=== PATIENT | female | born 1985 | race Caucasian/White ===

== ENCOUNTER → 2018-04-18 10:48 | Outpatient (POV) | payer OTHER, SELFPAY | PROVIDERS: Visit Provider Otolaryngology | DX: Z00.00 Encounter for general adult medical examination without abnormal findings (principal) ==

== ENCOUNTER 2019-03-28 12:58 | Observation (INO) ==
--- NOTE | 2019-03-28 13:07 | Emergency Department Note ---
ED Disposition Clinical Impression: Vaginal bleeding, Hemoperitoneum Disposition: Still a Patient Condition on Discharge: Critical Referrals: Leonid Edward MD [Primary Care Provider] - - Critical Care Critical Care Time: Yes Attestation: On , the high probability of a clinically significant, sudden or life threatening deterioration of the following system(s) required my full and direct attention, intervention and personal management. The time I documented below is in addition to time spent performing reported procedures but includes the following listed in this critical care notation. Total Critical Care Time: 60 Vital system(s) involved:: Circulatory Failure My critical care processes included: Assessment & monitoring of V/S, Initial and Re-exams, Data Review/Interpretation, Coordinating Care, Medication Orders and management, Documentation Medical Decision Making - Quentin Inquiry Pt receiving controlled substance: No Vital Signs: 03/28/19 13:05 03/28/19 14:59 Temperature 99.4 F Temperature Source Oral Pulse Rate [Right Radial] 86 77 Respiratory Rate 18 20 Blood Pressure [Right Arm] 127/69 105/43 L Blood Pressure Mean [Right Arm] 88 63 Blood Pressure Source [Right Arm] Automatic Cuff Automatic Cuff Blood Pressure Position [Right Arm] Sitting Supine 02 Sat by Pulse Oximetry 100 100 Oxygen Delivery Method Room Air Room Air - Lab Data Lab Results 03/28/19 13:15: WBC 28.8 H*, RBC 3.88 L, Hgb 11.1 L, Hct 37.0, MCV 95.2, MCH 28.5, MCHC 29.9 L, RDW 13.6, Plt Count 600 H, MPV 6.9 L, Neut % (Auto) 91.4 H, Lymph % (Auto) 4.1 L, [place] % (Auto) 4.0, Eos % (Auto) 0.3, Baso % (Auto) 0.2, Neut # (Auto) 26.3 H, Lymph # (Auto) 1.2, [place] # (Auto) 1.2 H, Eos # (Auto) 0.1, Baso # (Auto) 0.1, Total Counted 100, Neutrophils % (Manual) 90 H, Band Neutrophils % 2.0, Lymphocytes % (Manual) 5 L, Monocytes % (Manual) 2, Eosinophils % (Manual) 1, Platelet Estimate Slight increase, RBC Morphology Normal 03/28/19 13:15: Sodium 136, Potassium 3.4 L, Chloride 100, Carbon Dioxide 23, Anion Gap 16.4 H, BUN 17, Creatinine 0.81, Estimated Creat Clear 106, Estimated GFR 81, Est GFR ( Amer) 99, Glucose 118 H, Calcium 8.7, Total Bilirubin 0.6, AST 20, ALT 20, Alkaline Phosphatase 110, Total Protein 8.0, Albumin 3.9, Globulin 4.1 H, Albumin/Globulin Ratio 1.0 L 03/28/19 13:15: Serum HCG, Qual Positive 03/28/19 13:15: HCG, Quant 8 H 03/28/19 13:45: Crossmatch (AHG) See Detail 03/28/19 13:45: Lactate 2.4 H 03/28/19 13:59: Urine Color Red, Urine Appearance Turbid, Urine pH 8.0, Ur Specific [place] 1.015, Urine Protein 3+, Urine Glucose (UA) 1+, Urine Ketones 1+, Urine Blood 3+, Urine Nitrate Positive, Urine Bilirubin Negative, Urine Urobilinogen >=8.0, Ur Leukocyte Esterase 3+ A, Urine RBC Tntc, Urine WBC 20-50, Ur Squamous Epith Cells None, Urine Bacteria 2+ Result diagrams: 03/28/19 13:15 03/28/19 13:15 Orders (Tests/Meds): ED MEDICATIONS Generic Name Dose Route Start Last Admin Trade Name Freq PRN Reason Stop Dose Admin Sodium Chloride 250 mls @ 25 mls/hr 03/28/19 15:30 Sod Chlor 0.9% 250ml Bag IV 03/29/19 15:29 .Q10H STEFAN Discontinued Medications Generic Name Dose Route Start Last Admin Trade Name Freq PRN Reason Stop Dose Admin Sodium Chloride 1,000 mls @ 999 mls/hr 03/28/19 14:15 03/28/19 14:07 Sod Chlor 0.9% 1000ml Bag IV 03/28/19 15:15 999 mls/hr .Q1H1M STEFAN Administration Morphine Sulfate 1 mg 03/28/19 13:50 03/28/19 13:50 Morphine 2mg/Ml Syringe IV 03/28/19 13:51 1 mg ONCE ONE Administration Ondansetron HCl 4 mg 03/28/19 13:26 03/28/19 13:41 Zofran 4mg/2ml Vial IV 03/28/19 13:27 4 mg ONCE ONE Administration Sodium Chloride 1,000 ml 03/28/19 13:26 03/28/19 13:41 Sod Chlor 0.9% 1000ml Bag IV 03/28/19 13:27 1,000 ml BOLUS ONE Administration ORDERS Category Date Time Status PRBC [Red Blood Cells] Stat BBK 03/28/19 13:45 Received Type and Screen Stat BBK 03/28/19 13:45 Received US transvaginal Stat Exams 03/28/19 13:27 Ordered Hemoglobin and Hematocrit Routine Lab 03/28/19 15:16 Received Lactate Dehydrogenase Stat Lab 03/28/19 13:15 Received PT/PTT Stat Lab 03/28/19 15:21 Ordered Uric Acid Stat Lab 03/28/19 13:15 Received Blood Culture Stat Micro 03/28/19 13:45 Received Urine Culture Stat Micro 03/28/19 13:59 Received - US Data US Images: Pelvis ED US Reviewed: Yes: I discussed the US results w/the radiologist Findings Narrative: Intrauterine blood, large amount and also extrauterine blood present. - Physician Consults Physician Consulted: Te Time: 15:15 Reason -: Obstetrical Eval/Care Comment/Response: I advised of condition and findings and that I feel patient needs to go to OR. She will call radiologist and call back. Additional Consult: Kenny Cage Time: 15:23 Reason -: Obstetrical Eval/Care Comment/Response: advised of condition Medical Decision Narrative: 3:40 PM: Dr. Tiwari present. General Adult HPI - General Stated complaint: weak low b/p Time Seen by Provider: 03/28/19 13:16 - History of Present Illness HPI narrative: Complains of heavy vaginal bleeding, pelvic pain, dizziness, nausea, sweatiness, and low blood pressure. Symptoms started around 9 AM. She is gone through numerous pads, initially passing large amount of clots and then "straight blood". She had a section at [facility] on 03/12/2019. OB is Dr. Cage of [facility]. She says her blood pressure was high and she had elevated liver enzymes and therefore had a section at 38 weeks. She continued with high blood pressure after delivery and has been on Procardia. She only had light bleeding until her symptoms started this morning. She skipped her Procardia this morning because of low blood pressure. - Related Data Home Medications Medication Instructions Recorded Confirmed cetirizine 10 mg capsule 10 mg PO ONCE 10/16/17 fluticasone propionate 50 1 spray INTRANASAL ONCE 10/16/17 mcg/actuation nasal spray,suspension multivitamin capsule 1 cap PO QAM 10/16/17 Allergies Allergy/AdvReac Type Severity Reaction Status Date / Time No Known Allergies Allergy Verified 10/16/17 13:20 [facility] History - Hepatitis A Screen Attestation statement:: This patient has been screened for Hepatitis A risk factors. I have reviewed the patient's past medical history: Yes Other Surgeries: Yes: Amputation: No Fractures: No - Social History Smoking Status: Never smoker Alcohol Intake: current Alcohol Intake Frequency:: other Family Hx:: No significant family history ROS Obtained: Yes All systems reviewed & no additional complaints - Constitutional Constitutional: Reports excessive sweating, Reports weakness - Gastrointestinal Gastrointestingal: Reports: abdominal pain, nausea. Denies: vomiting - Genitourinary Female Genitourinary: Reports abnormal vaginal bleeding Physical Exam - General General appearance: alert Comment: Pale, anxious - Head Head exam: atraumatic, normocephalic - Eye Eye exam: Present: other (conjuctiva pale) - ENT ENT exam: Present: mucous membranes moist - Neck Neck exam: Present: normal inspection, trachea midline - Chest Chest inspection: Present: normal inspection, symmetric chest wall rise - Respiratory Respiratory exam: Present: normal lung sounds bilaterally. Absent: respiratory distress - Cardiovascular Cardiovascular exam: Present: regular rate, normal rhythm, normal heart sounds - Abdominal Exam Abdominal exam: Present: soft, tenderness, guarding, normal bowel sounds Abdominal tenderness: Present: RLQ, LLQ, suprapubic Comment: scar healing well - Extremities Exam Extremities exam: Present: normal inspection - Neurological Exam Neurological exam: Present: alert, oriented X3 - Psychiatric Psychiatric exam: Present: anxious - Skin Skin exam: Present: pallor
[2019-03-28 13:25] LABS: Basophils # 0.1 K/mm3 (0-0.2); Basophils % 0.2 % (0.1-2.0); Eosinophils # 0.1 K/mm3 (0.0-0.4); Eosinophils % 0.3 % (0.1-12.0); Hemoglobin 11.1 g/dL (12.2-16.2); Lymphocytes # 1.2 K/mm3 (0.7-4.5); Lymphocytes % 4.1 % (10-50); Mean Corpuscular HGB Conc 29.9 g/dL (31.8-35.4); Mean Corpuscular Volume 95.2 fl (81-99); Mean Platelet Volume 6.9 fl (7.4-10.4); Monocytes # 1.2 K/mm3 (0.1-1.0); Neutrophils # 26.3 K/mm3 (1.8-7.8); Neutrophils % 91.4 % (37.0-80.0); Platelet Count 600 K/mm3 (142-424); Red Blood Count 3.88 M/mm3 (4.20-5.40); Red Cell Distribution Width 13.6 % (11.5-17.5); White Blood Count 28.8 K/mm3 (4.8-10.8)
[2019-03-28 13:37] LABS: Albumin Level 3.9 gm/dL (3.4-5.0); Anion Gap 16.4 mEq/L (5-15); Bilirubin,Total 0.6 mg/dL (0.2-1.0); Calcium 8.7 mg/dL (8.5-10.1); Globulin 4.1 gm/dl (1.3-3.2)
[2019-03-28 13:56] LABS: Eosinophils % 1 % (0-3); Lymphocytes % 5 % (10-50); Monocytes % 2 % (2-9); Neutrophils % 90 % (42-76); RBC Morphology Normal; Total Cells Counted 100
[2019-03-28 14:32] LABS: Microscopic, Urine URINE MICROSCOPIC (MICROSCOPIC)
[2019-03-28 14:41] LABS: Bilirubin,Urine Negative (Negative); Blood, Urine 3+ (Negative); Glucose,Urine (UA) 1+ (Negative); Ketones,Urine 1+ (Negative); Leukocyte Esterase,Urine 3+ (Negative); Protein,Urine 3+ (Negative); Specific Gravity, Urine 1.015 (1.005-1.030); Urobilinogen,Urine >=8.0 EU/dl (0.2)
[2019-03-28 14:43] LABS: Appearance,Urine TURBID (Clear); Color,Urine RED (Yellow)
[2019-03-28 15:08] LABS: Bacteria,Urine 2+ /lpf; RBC,Urine TNTC #/hpf (0-3); WBC,Urine 20-50 #/hpf (0-3)
[2019-03-28 15:48] LABS: Uric Acid 6.2 mg/dL (2.6-7.2)
[2019-03-28 15:54] LABS: Hematocrit 22.5 % (37.0-47.0)
[2019-03-28 16:19] LABS: Activated Partial Thrombo Time 28.2 seconds (23.6-34.0); INR 1.06 (0.9-1.1)
--- NOTE | 2019-03-28 17:15 | Progress Note ---
[facility] Anesthesia Checklist - Structural Data Admitted From: Home Planned Operative Procedure/s: d/c Consent for Planned Operative Procedure(s) Verified: Yes - Airway Assessment C-Spine Mobility Assessed: Yes TMJ Mobility Assessed: Yes Dentition: Good Dentition - Neurological Assessment Level of Consciousness: Awake, Alert, Appropriate - Anesthesia Plan Anesthesia Risk discussed: Yes Anesthesia Plan: Verified ASA Class: II Anesthesia Type: General - Preoperative Comments Pre-Operative Comments: emergency [facility] History I have reviewed the patient's past medical history: Yes *Have you ever received a pneumonia vaccine?: Yes *Have you received a flu vaccine this season?: Yes Anesthesia experience/problems:: none Other Surgeries: Yes: Amputation: No Fractures: No - *Social History Smoking Status: Never smoker Alcohol Intake: never Alcohol Intake Frequency:: other Substance Use Type: denies use *Occupational Status:: employed *Travel in the last 8 weeks: None Family Hx:: No significant family history
--- NOTE | 2019-03-28 17:16 | Progress Note ---
[facility] Anesthesia Record Part II Discharge Time: 17:40 Destination: floor PACU nurse assessment reviewed?: Yes Patient Condition:: Good Anesthesia Complications:: None Swallowing reflex intact?: Yes Cyanosis?: No
--- NOTE | 2019-03-28 17:16 | Progress Note ---
[facility] Anesthesia Record Part I Intake, IV Amount: 1,500 Estimated blood loss (mL): 2,000 Urine output (mL): 0 Blood Pressure: 144/81 SaO2: 100 Pulse Rate: 110 Respiratory Rate: 12 Temperature: 97.8 F Patient is:: Awake, Stable Stable to PACU at:: 17:10
--- NOTE | 2019-03-28 18:10 | Operative Note ---
Date of procedure: 03/28/19 Pre-op Diagnosis:: 1. hemorrhage 2. Acute blood loss anemia 3. Acute abdominal pain Post-op Diagnosis:: 1. hemorrhage 2. Acute blood loss anemia 3. Acute abdominal pain 4. Retained placenta 5. Endometritis Procedure performed:: Suction Dilation and Curettage Surgeon:: Karlee Tiwari MD PROTEIN SPECIALIST:: Baljeet Kinsey Anesthesia: GETA Estimated blood loss (mL): 1,500 Operative findings:: Retained POC, c/w placenta Operative note:: The patient was taken to the OR and general anesthesia administered without difficulty. She was prepped & draped in lithotomy position; large clots were being expelled vaginally during the prep. A weighted speculum was placed in the vagina and a Gil retractor used anteriorly. The anterior lip of the cervix was grasped with a tenaculum and a curved suction curette, size 11 was introduced into the uterine cavity. The fundal height was noted to be 18cm prior to the beginning of the procedure, and a large amount of clot was immediately evacuated from the uterus with the suction. As the clot was being removed, a large amount of tissue with an appearance of placenta was noted to be clogging the suction tip. The suction was removed and the tissue was grasped with a ring forcep and pulled from the uterus. The suction curettage was resumed until the bleeding slowed down. At this point, sharp curettage was performed to verify that the endometrial texture was appropriate. Intra-operative ultrasound was also performed concurrently to assist with the procedure, and confirmed that there was on residual retained POC. The ultrasound also confirmed a lack of hemoperitoneum, which had been reported on the initial ultrasound. At the conclusion of the procedure, all instruments were removed from her uterus and vagina. She was taken out of lithotomy position, awakened from anesthesia and taken to the PACU in stable condition. All sponge, needle & instrument counts correct. Total EBL 1500cc Condition: stable Disposition: PACU Specimens:: Retained POC Complications:: None
[2019-03-28 19:28] LABS: Hemoglobin 9.6 g/dL (12.2-16.2)
[2019-03-29 00:15] LABS: Hematocrit 30.6 % (37.0-47.0); Hemoglobin 9.4 g/dL (12.2-16.2)
[2019-03-29 07:10] LABS: Hematocrit 25.7 % (37.0-47.0)
--- NOTE | 2019-03-29 08:08 | Pharmacy Consult Notes ---
[facility] Pharmacy VTE Monitoring - Patient Demographics Admission date: 03/28/19 Report Date: 03/29/19 Time: 08:07 Allergies/Adverse Reactions: Patient Allergies No Known Allergies Allergy (Verified 10/16/17 13:20) Height: 1.55 m Weight: 68.039 kg Patient Problems: Current Active Problems endometritis (Acute) Retained placenta (Acute) Acute blood loss anemia (Acute) hemorrhage, delayed (> 24 hrs) (Acute) Vaginal bleeding (Acute) - VTE Risk Labs: VTE Related Lab Results Hgb 8.0 g/dL (12.2-16.2) L 03/29/19 06:14 Hct 25.7 % (37.0-47.0) L 03/29/19 06:14 Plt Count 600 K/mm3 (142-424) H 03/28/19 13:15 PT 11.0 seconds (9.4-11.8) 03/28/19 15:30 INR 1.06 (0.9-1.1) 03/28/19 15:30 APTT 28.2 seconds (23.6-34.0) 03/28/19 15:30 BUN 17 mg/dL (7-18) 03/28/19 13:15 Creatinine 0.81 mg/dL (0.55-1.02) 03/28/19 13:15 Estimated Creat Clear 106 mL/min (50-200) 03/28/19 13:15 Clinical Trial Participant: No - Prophylaxis VTE Prophylaxis Ordered?: Yes Types of VTE Prophylaxis: TEDS Knee High
--- NOTE | 2019-03-29 10:29 | Discharge Summary ---
General - General Admission date:: 03/28/19 Discharge date: 03/29/19 HPI HPI: 33 yo presented to ED approximately 2 wks post repeat LTCS with excessive vaginal bleeding/PPH. She was taken to the OR for D&C, with findings of retained placenta, and transfused 2 units PRBCs. Post-transfusion Hgb 8.0, and she is clinically stable with this anemia. Reports fatigue, but denies chest pain, SOB or dizziness. Vital signs have been stable and vaginal bleeding small in amount. She has been treated with methergine q 6 hours and ampicillin/clindamycin for possible endometritis. She is discharged home on POD #1 and will follow up with primary boilermaker welder for previously scheduled post-op visit after c section. She does not need separate f/u for the D&C but was advised that she is also welcome to f/u with our office for any needs. She has been advised to hold the procardia at this time unless directed to resume it by her primary boilermaker welder, and given precautions to check blood pressure at home should she become symptomatic. Hospital Course Hospital Course: per HPI Rhogam Administration: Not Indicated Objective Vital signs: Temp Pulse Resp BP Pulse Ox 99.0 F 65 18 111/55 L 100 03/29/19 07:47 03/29/19 07:47 03/29/19 07:47 03/29/19 07:47 03/29/19 07:47 Narrative: CONSTITUTIONAL: no acute distress HEENT: mucous membranes moist PULMONARY: breathing unlabored without audible wheezes CV: no tachycardia or visible JVD; normal LE peripheral pulses ABD: soft, NT/ND, no guarding : fundus firm below umbilicus (14cm) SKIN: no visible rash or lesions EXT: no edema LEs NEURO: alert/oriented, no altered mental status PSYCH: appropriate mood and demeanor without anxiety/depression Results Labs on day of discharge: Labs from last 24 hours 03/29/19 03/29/19 03/28/19 06:14 00:06 18:59 WBC RBC Hgb 8.0 L 9.4 L 9.6 L D Hct 25.7 L 30.6 L 32.0 L MCV MCH MCHC RDW Plt Count MPV Neut % (Auto) Lymph % (Auto) [place] % (Auto) Eos % (Auto) Baso % (Auto) Neut # (Auto) Lymph # (Auto) [place] # (Auto) Eos # (Auto) Baso # (Auto) Total Counted Neutrophils % (Manual) Band Neutrophils % Lymphocytes % (Manual) Monocytes % (Manual) Eosinophils % (Manual) Platelet Estimate RBC Morphology PT INR APTT Sodium Potassium Chloride Carbon Dioxide Anion Gap BUN Creatinine Estimated Creat Clear Estimated GFR Est GFR ( Amer) Glucose Lactate Uric Acid Calcium Total Bilirubin AST ALT Alkaline Phosphatase Lactate Dehydrogenase Total Protein Albumin Globulin Albumin/Globulin Ratio Serum HCG, Qual HCG, Quant Urine Color Urine Appearance Urine pH Ur Specific [place] Urine Protein Urine Glucose (UA) Urine Ketones Urine Blood Urine Nitrate Urine Bilirubin Urine Urobilinogen Ur Leukocyte Esterase Urine RBC Urine WBC Ur Squamous Epith Cells Urine Bacteria Blood Type Blood Type Confirm Antibody Screen Crossmatch ([facility]) 03/28/19 03/28/19 03/28/19 18:59 16:10 15:30 WBC RBC Hgb Hct MCV MCH MCHC RDW Plt Count MPV Neut % (Auto) Lymph % (Auto) [place] % (Auto) Eos % (Auto) Baso % (Auto) Neut # (Auto) Lymph # (Auto) [place] # (Auto) Eos # (Auto) Baso # (Auto) Total Counted Neutrophils % (Manual) Band Neutrophils % Lymphocytes % (Manual) Monocytes % (Manual) Eosinophils % (Manual) Platelet Estimate RBC Morphology PT 11.0 INR 1.06 APTT 28.2 Sodium Potassium Chloride Carbon Dioxide Anion Gap BUN Creatinine Estimated Creat Clear Estimated GFR Est GFR ( Amer) Glucose Lactate 1.2 Uric Acid Calcium Total Bilirubin AST ALT Alkaline Phosphatase Lactate Dehydrogenase Total Protein Albumin Globulin Albumin/Globulin Ratio Serum HCG, Qual HCG, Quant Urine Color Urine Appearance Urine pH Ur Specific [place] Urine Protein Urine Glucose (UA) Urine Ketones Urine Blood Urine Nitrate Urine Bilirubin Urine Urobilinogen Ur Leukocyte Esterase Urine RBC Urine WBC Ur Squamous Epith Cells Urine Bacteria Blood Type Blood Type Confirm O Positive Antibody Screen Crossmatch ([facility]) 03/28/19 03/28/19 03/28/19 15:16 13:59 13:45 WBC RBC Hgb 7.0 L* D Hct 22.5 L* MCV MCH MCHC RDW Plt Count MPV Neut % (Auto) Lymph % (Auto) [place] % (Auto) Eos % (Auto) Baso % (Auto) Neut # (Auto) Lymph # (Auto) [place] # (Auto) Eos # (Auto) Baso # (Auto) Total Counted Neutrophils % (Manual) Band Neutrophils % Lymphocytes % (Manual) Monocytes % (Manual) Eosinophils % (Manual) Platelet Estimate RBC Morphology PT INR APTT Sodium Potassium Chloride Carbon Dioxide Anion Gap BUN Creatinine Estimated Creat Clear Estimated GFR Est GFR ( Amer) Glucose Lactate 2.4 H Uric Acid Calcium Total Bilirubin AST ALT Alkaline Phosphatase Lactate Dehydrogenase Total Protein Albumin Globulin Albumin/Globulin Ratio Serum HCG, Qual HCG, Quant Urine Color Red Urine Appearance Turbid Urine pH 8.0 Ur Specific [place] 1.015 Urine Protein 3+ Urine Glucose (UA) 1+ Urine Ketones 1+ Urine Blood 3+ Urine Nitrate Positive Urine Bilirubin Negative Urine Urobilinogen >=8.0 Ur Leukocyte Esterase 3+ A Urine RBC Tntc Urine WBC 20-50 Ur Squamous Epith Cells None Urine Bacteria 2+ Blood Type Blood Type Confirm Antibody Screen Crossmatch ([facility]) 03/28/19 03/28/19 03/28/19 13:45 13:15 13:15 WBC RBC Hgb Hct MCV MCH MCHC RDW Plt Count MPV Neut % (Auto) Lymph % (Auto) [place] % (Auto) Eos % (Auto) Baso % (Auto) Neut # (Auto) Lymph # (Auto) [place] # (Auto) Eos # (Auto) Baso # (Auto) Total Counted Neutrophils % (Manual) Band Neutrophils % Lymphocytes % (Manual) Monocytes % (Manual) Eosinophils % (Manual) Platelet Estimate RBC Morphology PT INR APTT Sodium Potassium Chloride Carbon Dioxide Anion Gap BUN Creatinine Estimated Creat Clear Estimated GFR Est GFR ( Amer) Glucose Lactate Uric Acid 6.2 Calcium Total Bilirubin AST ALT Alkaline Phosphatase Lactate Dehydrogenase 243 H Total Protein Albumin Globulin Albumin/Globulin Ratio Serum HCG, Qual HCG, Quant 8 H Urine Color Urine Appearance Urine pH Ur Specific [place] Urine Protein Urine Glucose (UA) Urine Ketones Urine Blood Urine Nitrate Urine Bilirubin Urine Urobilinogen Ur Leukocyte Esterase Urine RBC Urine WBC Ur Squamous Epith Cells Urine Bacteria Blood Type O Positive Blood Type Confirm Antibody Screen Negative Crossmatch ([facility]) See Detail 03/28/19 03/28/19 03/28/19 13:15 13:15 13:15 WBC 28.8 H* RBC 3.88 L Hgb 11.1 L Hct 37.0 MCV 95.2 MCH 28.5 MCHC 29.9 L RDW 13.6 Plt Count 600 H MPV 6.9 L Neut % (Auto) 91.4 H Lymph % (Auto) 4.1 L [place] % (Auto) 4.0 Eos % (Auto) 0.3 Baso % (Auto) 0.2 Neut # (Auto) 26.3 H Lymph # (Auto) 1.2 [place] # (Auto) 1.2 H Eos # (Auto) 0.1 Baso # (Auto) 0.1 Total Counted 100 Neutrophils % (Manual) 90 H Band Neutrophils % 2.0 Lymphocytes % (Manual) 5 L Monocytes % (Manual) 2 Eosinophils % (Manual) 1 Platelet Estimate Slight increase RBC Morphology Normal PT INR APTT Sodium 136 Potassium 3.4 L Chloride 100 Carbon Dioxide 23 Anion Gap 16.4 H BUN 17 Creatinine 0.81 Estimated Creat Clear 106 Estimated GFR 81 Est GFR ( Amer) 99 Glucose 118 H Lactate Uric Acid Calcium 8.7 Total Bilirubin 0.6 AST 20 ALT 20 Alkaline Phosphatase 110 Lactate Dehydrogenase Total Protein 8.0 Albumin 3.9 Globulin 4.1 H Albumin/Globulin Ratio 1.0 L Serum HCG, Qual Positive HCG, Quant Urine Color Urine Appearance Urine pH Ur Specific [place] Urine Protein Urine Glucose (UA) Urine Ketones Urine Blood Urine Nitrate Urine Bilirubin Urine Urobilinogen Ur Leukocyte Esterase Urine RBC Urine WBC Ur Squamous Epith Cells Urine Bacteria Blood Type Blood Type Confirm Antibody Screen Crossmatch ([facility]) DS: Diagnosis - Discharge Diagnosis (1) hemorrhage, delayed (> 24 hrs) Status: Acute (2) Retained placenta Status: Acute (3) Acute blood loss anemia Status: Acute (4) endometritis Status: Acute Discharge Plan - Patient Discharge Instructions ACTIVITY: Continue current activity DIET: regular diet Additional Instructions: no heavy lifting- nothing in the vagina until 6 weeks pp or cleared by md take over the counter medications for pain monitor bleeding Patient Instructions: Dilation and Curettage, Anemia, Hemorrhage, Diet - Follow up Plan Disposition: Home, Self-Shelter Medications: Home Medications Medication Instructions Recorded Confirmed Type Clindamycin HCl [Clindamycin HCl 300 mg PO Q8 #30 cap 03/29/19 Rx 300mg Cap] Ferrous Sulfate [Ferrous Sulfate 325 mg PO BID #60 tab 03/29/19 Rx 325mg Tablet] Ibuprofen [Ibuprofen 600mg 600 mg PO NEEDED PRN 03/29/19 03/29/19 History Tablet] NIFEdipine [Nifedipine ER] 30 mg PO DAILY 03/29/19 03/29/19 History Prescriptions/Medication Reconciliation: New Clindamycin HCl [Clindamycin HCl 300mg Cap] 300 mg PO Q8 #30 cap Ferrous Sulfate [Ferrous Sulfate 325mg Tablet] 325 mg PO BID #60 tab Vits96/Iron Fum/Folic [ MVI w/Iron Tablet] 1 each PO 1700 tablet Continued Ibuprofen [Ibuprofen 600mg Tablet] 600 mg PO NEEDED PRN PRN Reason: Mild Pain Discontinued NIFEdipine [Nifedipine ER] 30 mg PO DAILY - Problem Reconciliation Problems Reviewed?: Yes
== END 2019-03-29 13:30 | disposition home or self-care (01) ==
LOC: ER 12:58 → OB 16:15 → SDC 16:15
PROVIDERS: ADMIT Obstetrics & Gynecology; ATTEND Obstetrics & Gynecology
CPT/HCPCS: 36415; 76830; 80053; 81001; 83605; 83615; 84550; 84702; 84703; 85007; 85014; 85018; 85025; 85610; 85730; 86850; 87040; 87086; 94761; 96365; 96366; 96372; 96375; 99285; G0378; J0290; J2405; J2710; P9016

== ENCOUNTER → 2019-10-26 11:28 | Outpatient (CLI) | payer OTHER, SELFPAY ==
--- NOTE | 2019-10-26 11:35 | CT_ITS ---
PROCEDURE: CT PELVIS WO/W CON CLINICAL INDICATION: SUPRAPUBIC PAIN,ABD PAIN,H/O HEMORRHAGE COMPARISON: No exams were available for comparison TECHNIQUE: Axial images obtained with sagittal and coronal reformats. All CT scans at the facility use one or more dose reduction, viz: automated exposure control, ma/kV adjustment per patient size (including targeted exams where dose is matched to indication, i.e. head), or iterative reconstruction technique. FINDINGS: Low-density changes are present within the central aspect of the uterine fundus. This area measures 2.7 cm. The adnexa have an unremarkable appearance. There is only minimal amount of fluid in the cul-de-sac. No evidence of appendicitis. No acute bony findings. There is minimal stranding the fat within the lower anterior abdominal wall and within the lower pelvis anteriorly which could be due to previous . Minimal amount fluid noted also in the right lower quadrant. IMPRESSION: Prominent low-density changes in the endometrial region of the fundus of the uterus. This could represent hematometros or underlying infection. Recommend pelvic ultrasound for further evaluation. Dictated by: Saul Clinton MD 10/26/2019 12:51 Electronically signed by Saul Clinton MD in [place] 10/26/2019 12:51
== END ==
PROVIDERS: PCP Family Medicine; Visit Provider Nurse Practitioner Family
DX: R10.2 Pelvic and perineal pain (principal); R10.30 Lower abdominal pain, unspecified; Z86.2 Personal history of diseases of the blood and blood-forming organs and certain disorders involving the immune mechanism
CPT/HCPCS: 72194; Q9967

== ENCOUNTER → 2019-10-29 09:16 | Outpatient (CLI) | payer OTHER, SELFPAY ==
--- NOTE | 2019-10-29 09:22 | US_ITS ---
PROCEDURE: US TRANSVAGINAL CLINICAL INDICATION: SUPREPUBIC PAIN,H/O HEMORRHAGE Pelvic pain, abnormal CT scan COMPARISON: US TRANSVAGINAL from 03/28/2019 CT PELVIS WO/W CON from 10/26/2019 FINDINGS: Uterus is abnormal. Complex fluid collection noted within the endometrium measuring 3.4 x 3 cm. There are some low level echoes as well as some increased echogenicity along the lateral aspect of this collection. The left ovary is 2.9 x 1.6 cm with an unremarkable appearance. The right ovary is 2.3 x 2 cm some small follicles. Bilateral ovarian blood flow is noted. No cul-de-sac fluid is apparent. IMPRESSION: Distended complex fluid-filled endometrial cavity. Hematometrium or endometrial infection is considered. PILLAR MAN consult suggested Dictated by: Saul Clinton MD 10/29/2019 15:15 Electronically signed by Saul Clinton MD in [facility] 10/29/2019 15:15
== END ==
PROVIDERS: PCP Family Medicine; Visit Provider Nurse Practitioner Family
DX: R10.2 Pelvic and perineal pain (principal); Z86.2 Personal history of diseases of the blood and blood-forming organs and certain disorders involving the immune mechanism
CPT/HCPCS: 76830

== ENCOUNTER → 2020-02-12 16:27 | Outpatient (CLI) | payer OTHER, SELFPAY ==
[2020-02-12 16:48] LABS: Basophils % 0.6 % (0.1-2.0); Eosinophils # 0.1 K/mm3 (0.0-0.4); Eosinophils % 1.2 % (0.1-12.0); Hematocrit 39.7 % (37.0-47.0); Hemoglobin 13.4 g/dL (12.2-16.2); Lymphocytes # 2.1 K/mm3 (0.7-4.5); Lymphocytes % 30.9 % (10-50); Mean Corpuscular HGB Conc 33.7 g/dL (31.8-35.4); Mean Corpuscular Hemoglobin 30.6 pg (27.0-31.2); Mean Corpuscular Volume 91.1 fl (81-99); Mean Platelet Volume 7.4 fl (7.4-10.4); Monocytes # 0.3 K/mm3 (0.1-1.0); Monocytes % 4.8 % (1.7-9.3); Neutrophils # 4.3 K/mm3 (1.8-7.8); Neutrophils % 62.6 % (37.0-80.0); Platelet Count 325 K/mm3 (142-424); Red Blood Count 4.36 M/mm3 (4.20-5.40); Red Cell Distribution Width 12.8 % (11.5-17.5); White Blood Count 6.9 K/mm3 (4.8-10.8)
[2020-02-12 17:25] LABS: Alanine Aminotransferase 17 U/L (12-78); Albumin Level 4.9 g/dl (3.5-5.0); Albumin/Globulin Ratio 1.8 (1.1-1.8); Alkaline Phosphatase 70 U/L (38-126); Anion Gap 17.6 mEq/L (5-15); Aspartate Amino Transferase 24 U/L (14-36); Bilirubin,Total 0.3 mg/dl (0.2-1.3); Blood Urea Nitrogen 15 mg/dl (7-17); Calcium 9.4 mg/dl (8.4-10.2); Carbon Dioxide 27 mmol/L (22.0-30.0); Chloride 102 mmol/L (98-107); Estimated Glomerular Filt Rate 96 ml/min (>60); GFR (African American) 116 ML/MIN (>60); Globulin 2.7 g/dL (1.3-3.2); Glucose 96 mg/dl (74-100); Potassium 4.6 mmoL/L (3.5-5.1); Sodium 142 mmol/L (136-145); Total Protein,Serum 7.6 g/dl (6.3-8.2)
== END ==
PROVIDERS: Visit Provider Nurse Practitioner Family
DX: R10.31 Right lower quadrant pain (principal)
CPT/HCPCS: 36415; 80053; 85025

== ENCOUNTER → 2020-02-26 07:42 | Outpatient (CLI) | payer OTHER, SELFPAY ==
--- NOTE | 2020-02-26 07:47 | US_ITS ---
PROCEDURE: US ABDOMEN COMPLETE CLINICAL INDICATION: LOWER ABD PAIN Right upper quadrant pain COMPARISON: No exams were available for comparison FINDINGS: PANCREAS: Unremarkable. No obvious mass or abnormal fluid collection. No ductal dilatation LIVER: No focal liver lesions demonstrated. Homogeneous echogenicity. No intrahepatic biliary ductal dilatation evident. There is appropriate direction of blood flow within a non dilated portal vein RIGHT KIDNEY: Unremarkable. Normal size and echogenicity. No hydronephrosis LEFT KIDNEY: Unremarkable. Normal size and echogenicity. No hydronephrosis GALLBLADDER: No gallstones, gallbladder wall thickening, pericholecystic fluid, or biliary dilatation. There is a small gallbladder polyp anteriorly at 2-3 mm AORTA: No evidence of aneurysmal dilatation. SPLEEN: Unremarkable. Normal size and echogenicity there are multiple splenic calcifications which may be due to granulomas ASCITES: None demonstrated. IMPRESSION: No acute finding. There is a small gallbladder polyp and multiple splenic granulomas otherwise negative Dictated by: Saul Clinton MD 02/26/2020 10:46 Saul Clinton MD in [place] 02/26/2020 10:46
== END ==
PROVIDERS: PCP Family Medicine; Visit Provider Nurse Practitioner Family
DX: R10.30 Lower abdominal pain, unspecified (principal)
CPT/HCPCS: 76700

== ENCOUNTER 2020-05-18 12:39 | Emergency (ER) | payer OTHER, SELFPAY ==
[2020-05-18 13:26] VITALS: BP 129/84; PULSE 92; RESP 14; TEMP 37.3; O2SAT 98; BMI 28.3
--- NOTE | 2020-05-18 13:32 | HMH.EDUTC ---
[facility] [place] Disposition Clinical Impression: Bronchitis Sinusitis Qualifiers: Sinusitis location: unspecified location Chronicity: unspecified Qualified Code(s): J32.9 - Chronic sinusitis, unspecified Disposition: Home, Self-Care Condition on Discharge: Good Instructions: Sore Throat, Sinusitis, DI for Sinusitis Additional Instructions: *Monitor Temp, Over the counter Motrin or Tylenol as directed/as needed Tylenol every 4 hours and Motrin every 6 hours (as long as your family doctor has told you that you can take it) for fever or pain. and straight to ER if unable to lower temp less than 101.0 after medication given *Warm salt water gargles may help to soothe the throat *Throat Lozenges *Warm fluids like tea with honey may help to soothe the throat *Sleep elevated *Humidifier/Vaporizer *Flonase 2 sprays in each nostril daily but be aware that it may take 2-3 days before you notice improvement Follow up IMMEDIATELY for new or worsening symptoms or no Noticeable improvement over the next 48-72 hours. 911 for difficulty breathing or swallowing You was tested for today for COVID19 your test result should be back in the next 24-48 hours, you may call to the [facility] tomorrow to see if your test results are back and the result [phone] You was given a handout with instructions for Self Quarantine and Self isolation for while you wait on test results and what to do if they are positive If you are positive the Health Dept will be contacting you also Prescriptions: Brompheniramine/Pseudoephed/Dm [Bromfed Dm Cough Syrup] 5 - 10 ml PO Q46H PRN #200 ml PRN Reason: Cough Transmission Status: Pending to [facility] Fluticasone Propionate [Flonase 50mcg nasal spray 16gm] 1 spr NS DAILY #1 bottle Transmission Status: Received by [facility] methylPREDNISolone [Medrol 4mg tab] 4 mg PO DIRECTED #21 tab Transmission Status: Received by [facility] Azithromycin [Z-Rodrigo 250mg Tab] 250 mg PO DIRECTED #6 tab Transmission Status: Received by [facility] Referrals: Leonid Edward MD [Primary Care Provider] - As needed Forms: Work/School Release Time of Disposition: 13:35 Medical Decision Making - Quentin Inquiry Pt receiving controlled substance: No Quentin was queried for this patient: No Vital Signs: 05/18/20 13:26 Temperature 99.1 F Temperature Source Oral Pulse Rate [Left Radial] 92 H Respiratory Rate 14 Blood Pressure [Right Arm] 129/84 Blood Pressure Mean [Right Arm] 99 Blood Pressure Source [Right Arm] Automatic Cuff Blood Pressure Position [Right Arm] Sitting 02 Sat by Pulse Oximetry 98 Oxygen Delivery Method Room Air - Lab Data Lab results reviewed: Yes: I reviewed the patient's lab results. [facility] [place] HPI - General Stated complaint: sore throat,cough Time Seen by Provider: 05/18/20 13:32 Mode of Arrival: Ambulatory Source of Information: Patient Limitations: No Limitations Description of Symptoms (Recalled from Triage Doc. by RN): pt reports fever that started tuesday as well as sore throat, sinus pressure, and drainage HEENT Symptoms (Recalled from RN notes): Yes (sore throat) Resp Symptoms (Recalled from RN notes): Yes (sinus pressure) Skin Symptoms (Recalled from RN notes): No MS Symptoms (Recalled from RN notes): No Functional Status (Recalled from RN notes): wnl - History of Present Illness Provider Complaint: Patient state that she started feeling bad on Tuesday States that she as been having sore throat, sinus pain and pressure and low grade fever ever since States that she has had a burning like pain in her throat like she had before when she had bronchitis States that she was worried so she came in to get tested - Related Data Previous Rx's Medication Instructions Recorded Azithromycin [Z-Rodrigo 250mg Tab] 250 mg PO DIRECTED #6 tab 05/18/20 Brompheniramine/Pseudoephed/Dm 5 - 10 ml PO Q46H PRN #200 ml 05/18/20 [Bromfed Dm Cough Syrup] Fluticasone
[2020-05-18 13:45] VITALS: BP 129/84; PULSE 92; RESP 14; TEMP 37.3; O2SAT 98
[2020-05-18 19:21] LABS: UTC Strep Screen (Rapid) Negative (Negative)
--- NOTE | 2020-05-18 19:37 | PC.NURSE ---
PATIENT NOTIFIED OF POSITIVE COVID RESULTS
== END 2020-05-18 13:46 | disposition home or self-care (01) ==
PROVIDERS: Emergency Provider Nurse Practitioner; PCP Family Medicine
DX: U07.1 COVID-19 (principal)
CPT/HCPCS: 87880; 99202; U0003

== ENCOUNTER → 2020-08-12 14:31 | Outpatient (CLI) | payer OTHER, SELFPAY | PROVIDERS: PCP Family Medicine; Visit Provider Nurse Practitioner Family | DX: Z20.822 Contact with and (suspected) exposure to COVID-19 (principal) | CPT/HCPCS: U0003 ==

== ENCOUNTER 2021-08-29 18:56 | Emergency (ER) | payer OTHER, SELFPAY ==
[2021-08-29 19:10] VITALS: BP 143/89; PULSE 115; RESP 18; TEMP 37.1; O2SAT 97; BMI 26.4
[2021-08-29 19:20] LABS: UTC Influenza A Antigen Negative (Negative); UTC Influenza B Antigen Negative (Negative)
--- NOTE | 2021-08-29 19:49 | HMH.EDUTC ---
[facility] [place] Disposition Clinical Impression: Viral syndrome Disposition: Home, Self-Care Condition on Discharge: Good Instructions: DI for COVID-19 (Suspected or Confirmed ), Preventing the Spread of Coronavirus Discharge Instructions Additional Instructions: Drink plenty of fluids. Take tylenol or ibuprofen for pain or fever. Take the medications as directed. Follow up with your regular doctor. GO TO THE ER FOR ANY WORSENING SYMPTOMS Quarantine until you know the results of your covid-19 test. Notify your school or workplace of your results and follow their instructions regarding return to work/school. The cough medication (promethazine dm) will make you drowsy, so don't drive or operate heavy machinery after taking it. Prescriptions: Ibuprofen [Ibuprofen 600mg Tablet] 600 mg PO Q6HP PRN #30 tab PRN Reason: Mild Pain [facility] Promethazine/Dextromethorphan [Promethazine-Dm Syrup] 5 ml PO Q6HP PRN #240 ml PRN Reason: Cough Transmission Status: [facility] Ondansetron [Zofran 4mg ODT] 4 mg PO Q8HP PRN #20 tab PRN Reason: Nausea Transmission Status: Received by [facility] Referrals: Leonid Edward MD [Primary Care Provider] - Time of Disposition: 20:41 Medical Decision Making - Medical Records Medical records reviewed: No: I reviewed the patient's medical records. - Quentin Inquiry Pt receiving controlled substance: No Vital Signs: 08/29/21 19:10 08/29/21 20:53 Temperature 98.7 F 98.7 F Temperature Source Oral Pulse Rate 115 H Pulse Rate [Left] 115 H Respiratory Rate 18 18 Blood Pressure 143/89 H Blood Pressure [Right Arm] 143/89 H Blood Pressure Mean [Right Arm] 107 02 Sat by Pulse Oximetry 97 - Lab Data Lab Results 08/29/21 19:09: Influenza Type A Ag Negative, Influenza Type B Ag Negative Orders (Tests/Meds): ED MEDICATIONS Discontinued Medications Generic Name Dose Route Start Last Admin Trade Name Freq PRN Reason Stop Dose Admin Ibuprofen 800 mg 08/29/21 20:22 08/29/21 20:37 Ibuprofen 400 Mg Tablet PO 08/29/21 20:23 800 mg ONCE ONE Administration Ondansetron HCl 4 mg 08/29/21 20:26 08/29/21 20:37 Ondansetron 4mg Odt SL 08/29/21 20:27 4 mg ONCE ONE Administration [facility] [place] HPI - General Stated complaint: fever.JASON,chills, body pain Time Seen by Provider: 08/29/21 19:49 Mode of Arrival: Ambulatory Source of Information: Patient Limitations: No Limitations HEENT Symptoms (Recalled from RN notes): Yes Resp Symptoms (Recalled from RN notes): No Skin Symptoms (Recalled from RN notes): No MS Symptoms (Recalled from RN notes): No Functional Status (Recalled from RN notes): wnl - History of Present Illness Provider Complaint: pt c/o nausea, chills, fever, body aches and a JASON. - Related Data Previous Rx's Medication Instructions Recorded Azithromycin [Z-Rodrigo 250mg Tab] 250 mg PO DIRECTED #6 tab 05/18/20 Brompheniramine/Pseudoephed/Dm 5 - 10 ml PO Q46H PRN #200 ml 05/18/20 [Bromfed Dm Cough Syrup] Fluticasone Propionate [Flonase 1 spr NS DAILY #1 bottle 05/18/20 50mcg nasal spray 16gm] methylPREDNISolone [Medrol 4mg 4 mg PO DIRECTED #21 tab 05/18/20 tab] Ibuprofen [Ibuprofen 600mg 600 mg PO Q6HP PRN #30 tab 08/29/21 Tablet] Ondansetron [Zofran 4mg ODT] 4 mg PO Q8HP PRN #20 tab 08/29/21 Promethazine/Dextromethorphan 5 ml PO Q6HP PRN #240 ml 08/29/21 [Promethazine-Dm Syrup] Allergies Allergy/AdvReac Type Severity Reaction Status Date / Time No Known Allergies Allergy Verified 05/18/20 13:32 - Worker's Comp Is this a Worker's Comp case?: No [facility] History - Hepatitis A Screen Drug use history?: No High risk sexual behaviors?: No History of sexually transmitted infection?: No Currently employed?: No Childcare worker?: No Do you have indoor plumbing?: Yes Do you have electricity?: Yes Att
[2021-08-29 20:53] VITALS: BP 143/89; PULSE 115; RESP 18; TEMP 37.1
== END 2021-08-29 20:53 | disposition home or self-care (01) ==
PROVIDERS: Emergency Provider Nurse Practitioner Family; PCP Family Medicine
DX: B34.9 Viral infection, unspecified (principal)
CPT/HCPCS: 87804; 99202; C9803; G0463; U0003; U0005

== ENCOUNTER 2021-12-01 20:03 | Emergency (ER) | payer OTHER, SELFPAY ==
[2021-12-01 20:29] VITALS: BP 125/83; PULSE 98; RESP 17; TEMP 37.1; O2SAT 99; BMI 24.7
--- NOTE | 2021-12-01 20:32 | HMH.EDUTC ---
[facility] [place] Disposition Clinical Impression: Viral syndrome, COVID-19 Disposition: Home, Self-Care Condition on Discharge: Good Instructions: Preventing the Spread of Coronavirus Discharge Instructions, DI for COVID-19 (Suspected or Confirmed ) Additional Instructions: Drink plenty of fluids. Take tylenol or ibuprofen for pain or fever. Take the medications as directed. Follow up with your regular doctor. GO TO THE ER FOR ANY WORSENING SYMPTOMS The cough medication (promethazine dm) will make you drowsy, so don't drive or operate heavy machinery after taking it. Prescriptions: Albuterol Sulfate [Albuterol Sulfate Hfa] 2 puffs IH Q6HP PRN 30 Days #1 each PRN Reason: Shortness Of Breath Transmission Status: Pending to [facility] Promethazine/Dextromethorphan [Promethazine-Dm Syrup] 5 ml PO Q6HP PRN #240 ml PRN Reason: Cough Transmission Status: Pending to [facility] Ondansetron [Zofran 4mg ODT] 4 mg PO Q8HP PRN #20 tab PRN Reason: Nausea Transmission Status: Pending to [facility] methylPREDNISolone [Medrol] 4 mg PO DIRECTED 6 Days #21 packet Transmission Status: Pending to [facility] Referrals: Leonid Edward MD [Primary Care Provider] - Time of Disposition: 20:49 Medical Decision Making - Medical Records Medical records reviewed: No: I reviewed the patient's medical records. - Quentin Inquiry Pt receiving controlled substance: No Vital Signs: 12/01/21 20:29 Temperature 98.8 F Temperature Source Oral Pulse Rate [Left Radial] 98 H Respiratory Rate 17 Blood Pressure [Right Arm] 125/83 Blood Pressure Mean [Right Arm] 97 02 Sat by Pulse Oximetry 99 - Lab Data Lab results reviewed: Yes: I reviewed the patient's lab results. [facility] [place] HPI - General Stated complaint: covid test @home test + and ear ache Time Seen by Provider: 12/01/21 20:32 - History of Present Illness Provider Complaint: She states that over the past 24 hours she has began to feel bad, have body aches, have a nonproductive cough, bilateral ear pain and a scratchy sore throat. She took a home covid-19 test today and it was positive. She came here to have a pcr test done. - Related Data Previous Rx's Medication Instructions Recorded Azithromycin [Z-Rodrigo 250mg Tab] 250 mg PO DIRECTED #6 tab 05/18/20 Brompheniramine/Pseudoephed/Dm 5 - 10 ml PO Q46H PRN #200 ml 05/18/20 [Bromfed Dm Cough Syrup] Fluticasone Propionate [Flonase 1 spr NS DAILY #1 bottle 05/18/20 50mcg nasal spray 16gm] methylPREDNISolone [Medrol 4mg 4 mg PO DIRECTED #21 tab 05/18/20 tab] Ibuprofen [Ibuprofen 600mg 600 mg PO Q6HP PRN #30 tab 08/29/21 Tablet] Ondansetron [Zofran 4mg ODT] 4 mg PO Q8HP PRN #20 tab 08/29/21 Promethazine/Dextromethorphan 5 ml PO Q6HP PRN #240 ml 08/29/21 [Promethazine-Dm Syrup] Albuterol Sulfate [Albuterol 2 puffs IH Q6HP PRN 30 Days #1 each 12/01/21 Sulfate Hfa] Ondansetron [Zofran 4mg ODT] 4 mg PO Q8HP PRN #20 tab 12/01/21 Promethazine/Dextromethorphan 5 ml PO Q6HP PRN #240 ml 12/01/21 [Promethazine-Dm Syrup] methylPREDNISolone [Medrol] 4 mg PO DIRECTED 6 Days #21 12/01/21 packet Allergies Allergy/AdvReac Type Severity Reaction Status Date / Time No Known Allergies Allergy Verified 12/01/21 20:33 [facility] History - Hepatitis A Screen Attestation statement:: This patient has been screened for Hepatitis A risk factors. I have reviewed the patient's past medical history: Yes Medical History: Denies:: Cancer, Diabetes Mellitus Type 1, Diabetes Mellitus Type 2, MRSA Other Surgeries: Yes: Amputation: No Fractures: No - Social History Smoking Status: Never smoker Alcohol Intake: never Alcohol Intake Frequency:: other Substance Use Type: denies use Occupational Status: employed Housing: house Household Members: spouse Family Hx:: No significant family history ROS Obtained: Yes All systems rev
[2021-12-01 20:53] VITALS: BP 125/83; PULSE 98; RESP 17; TEMP 37.1
[2021-12-01 20:59] LABS: Adenovirus,PCR Not Detected (NotDetected); Bordetella Pertussis Not Detected (NotDetected); Chlamydophila Pneumoniae, PCR Not Detected (NotDetected); Coronavirus 229E Not Detected (NotDetected); Coronavirus NL63 Not Detected (NotDetected); Coronavirus OC43 Not Detected (NotDetected); Coronovirus HKU1,PCR Not Detected (NotDetected); Human Metapneumovirus Not Detected (NotDetected); Influenza A, PCR Not Detected (NotDetected); Influenza AH1, 2009 Not Detected (NotDetected); Influenza AH1, PCR Not Detected (NotDetected); Influenza AH3,PCR Not Detected (NotDetected); Influenza B, PCR Not Detected (NotDetected); Mycoplasma Pneumoniae, PCR Not Detected (NotDetected); Parainfluenza 1, PCR Not Detected (NotDetected); Parainfluenza 2, PCR Not Detected (NotDetected); Parainfluenza 3, PCR Not Detected (NotDetected); Parainfluenza 4, PCR Not Detected (NotDetected); Respiratory Syncytial Virus Not Detected (NotDetected); Rhinovirus/Enterovirus Not Detected (NotDetected)
== END 2021-12-01 20:57 | disposition home or self-care (01) ==
PROVIDERS: Emergency Provider Nurse Practitioner Family; PCP Family Medicine
DX: U07.1 COVID-19 (principal); R52 Pain, unspecified; R05.8 Other specified cough
CPT/HCPCS: 87486; 87581; 87632; 87798; 99212; C9803; G0463; U0003; U0005

== ENCOUNTER 2022-04-02 15:48 | Emergency (ER) | payer BC, SELFPAY ==
[2022-04-02 16:12] VITALS: BP 121/82; PULSE 106; RESP 19; TEMP 36.8; O2SAT 98; BMI 20.9
--- NOTE | 2022-04-02 16:21 | EXP.UTC ---
Discharge Plan Disposition Patient Disposition: Home, Self-Care Condition: Good Prescriptions Prescriptions: New azithromycin [Zithromax Z-Rodrigo] 250 mg tablet See Rx Instructions .ROUTE .COMPLEX 5 Days Qty: 6 0RF Rx Instructions: For 250 mg dose pack: take 500 mg today (day 1), then 250 mg for 4 days (days 2-5) methylprednisolone [Medrol (Rodrigo)] 4 mg tablets,dose pack See Rx Instructions .Route .COMPLEX 6 Days Qty: 21 0RF Rx Instructions: taper pack; No Action azithromycin 250 MG tablet 250 mg PO DIRECTED Qty: 6 0RF Rx Instructions: Take two (2) tablets on day #1, then one (1) tablet day #2 thru #5 methylprednisolone 4 MG tablet 4 mg PO DIRECTED Qty: 21 0RF Rx Instructions: Take as directed on package instructions fluticasone propionate 120 SPR/BOT bottle 1 spr NS DAILY Qty: 1 0RF Rx Instructions: each nostril daily [id number] 118 ML syrup 5 - 10 ml PO Q46H PRN (Reason: Cough) Qty: 200 0RF promethazine-DM 120 ML syrup 5 ml PO Q6HP PRN (Reason: Cough) Qty: 240 0RF ibuprofen 600 MG tablet 600 mg PO Q6HP PRN (Reason: Mild Pain) Qty: 30 0RF ondansetron 4 MG tablet,disintegrating 4 mg PO Q8HP PRN (Reason: Nausea) Qty: 20 0RF promethazine-DM 120 ML syrup 5 ml PO Q6HP PRN (Reason: Cough) Qty: 240 0RF methylprednisolone 4 MG tablets,dose pack 4 mg PO DIRECTED 6 Days Qty: 21 0RF albuterol sulfate 8.5 GM HFA aerosol inhaler 2 puffs IH Q6HP PRN (Reason: Shortness Of Breath) 30 Days Qty: 1 5RF ondansetron 4 MG tablet,disintegrating 4 mg PO Q8HP PRN (Reason: Nausea) Qty: 20 0RF Referrals Follow up/Referrals: Stephen Saleem MD [Primary Care Provider] - See instructions Activity Restrictions/Add. Instructions Additional Instructions/Restrictions: *Monitor Temp, Over the counter Motrin or Tylenol as directed/as needed Tylenol every 4 hours and Motrin every 6 hours (as long as your family doctor has told you that you can take it) for fever or pain. and straight to ER if unable to lower temp less than 101.0 after medication given *Warm salt water gargles may help to soothe the throat *Throat Lozenges? *Warm fluids like tea with honey may help to soothe the throat? *Sleep elevated *Humidifier/Vaporizer Your throat swab was sent for culture. Those results are typically sent to your primary care. Be sure to follow up in 2-3 days with your family doctor/primary care physician if no improvement so they can review those result and treat if necessary. If you don?t have a primary care doctor, I recommend you get one but in the mean time, you will have to return to a walk in clinic Follow up IMMEDIATELY for new or worsening symptoms or no Noticeable improvement over the next 48-72 hours. 911 for difficulty breathing or swallowing You were tested for today for COVID19 your test result should be back in the next 24-48 hours, you may check your results on the [facility] My Health Portal Make sure to take your Vitamins Vit. C Vit D and Zinc if you can take them Clinical Impressions Clinical Impression: Sinusitis Stand Alone Forms Stand Alone Forms: Work/School Release Instructions Patient Instructions: DI for Sinusitis, Sinusitis Discharge ED Provider: Oneida Briseno [facility] [place] HPI General Stated complaint: Sore throat,JASON,Head Congestion Time Seen by Provider: 04/02/22 16:21 Description of Symptoms (Recalled from Triage Doc. by RN): Patient states that she has been having sore throat, sinus congestion and pressure along with pain in her left ear and behind her eyes States that this evening she was feeling worse so she came in to get checked Related Data Previous Rx's Medication Instructions Recorded azithromycin 250 mg tablet 250 mg PO DIRECTED #6 tabs 05/18/20 [id number] 5 - 10 ml PO Q46H PRN Cough #200 mL 05/18/20 2 mg-30 mg-10 mg/5 mL oral syrup fluticasone
[2022-04-02 16:32] LABS: UTC Strep Screen (Rapid) Negative (Negative)
[2022-04-02 16:36] VITALS: BP 121/82; PULSE 106; RESP 19; TEMP 36.8; O2SAT 98
== END 2022-04-02 16:41 | disposition home or self-care (01) ==
PROVIDERS: Emergency Provider Nurse Practitioner; PCP Family Medicine
DX: J32.9 Chronic sinusitis, unspecified (principal); J02.9 Acute pharyngitis, unspecified; H92.02 Otalgia, left ear; R06.02 Shortness of breath; Z20.822 Contact with and (suspected) exposure to COVID-19; R11.0 Nausea; R05.9 Cough, unspecified; R51.9 Headache, unspecified; Z79.1 Long term (current) use of non-steroidal anti-inflammatories (NSAID); Z79.51 Long term (current) use of inhaled steroids; Z79.52 Long term (current) use of systemic steroids; Z79.899 Other long term (current) drug therapy
CPT/HCPCS: 87880; 99213; C9803; G0463; U0003; U0005

== ENCOUNTER 2022-06-03 14:15 | Emergency (ER) | payer BC, SELFPAY ==
[2022-06-03 15:05] VITALS: BP 146/86; PULSE 94; RESP 18; TEMP 37; O2SAT 99; BMI 23.3
[2022-06-03 15:25] LABS: Adenovirus,PCR Not Detected (NotDetected); Bordetella Pertussis Not Detected (NotDetected); Chlamydophila Pneumoniae, PCR Not Detected (NotDetected); Coronavirus 19, PCR Not Detected (NotDetected); Coronavirus 229E Not Detected (NotDetected); Coronavirus NL63 Not Detected (NotDetected); Coronavirus OC43 Not Detected (NotDetected); Coronovirus HKU1,PCR Not Detected (NotDetected); Human Metapneumovirus Not Detected (NotDetected); Influenza A, PCR Not Detected (NotDetected); Influenza AH1, 2009 Not Detected (NotDetected); Influenza AH1, PCR Not Detected (NotDetected); Influenza B, PCR Not Detected (NotDetected); Mycoplasma Pneumoniae, PCR Not Detected (NotDetected); Parainfluenza 1, PCR Not Detected (NotDetected); Parainfluenza 2, PCR Not Detected (NotDetected); Parainfluenza 3, PCR Not Detected (NotDetected); Parainfluenza 4, PCR Not Detected (NotDetected); Respiratory Syncytial Virus Not Detected (NotDetected); Rhinovirus/Enterovirus Not Detected (NotDetected)
--- NOTE | 2022-06-03 15:28 | EXP.UTC ---
Discharge Plan Disposition Patient Disposition: Home, Self-Care Condition: Good Prescriptions Prescriptions: New oseltamivir [Tamiflu] 75 mg capsule 75 mg PO Q12H 5 Days Qty: 10 0RF No Action buspirone 5 mg tablet 5 mg PO DAILY Label Comments: TAKE 1 TABLET BY MOUTH TWICE DAILY fexofenadine [Cookie Allergy] 60 mg Tablet 60 mg PO BID fluticasone propionate [Flonase] 50 mcg/actuation [place],Suspension 1 spray INTRANASAL DAILY Rx Instructions: administer into each nostril esomeprazole magnesium [Nexium] 20 mg Capsule,Delayed Release(Dr/Ec) 20 mg PO DAILY Referrals Follow up/Referrals: Stephen Saleem MD [Primary Care Provider] - See instructions Activity Restrictions/Add. Instructions Additional Instructions/Restrictions: *Monitor Temp, Over the counter Motrin or Tylenol as directed/as needed Tylenol every 4 hours and Motrin every 6 hours (as long as your family doctor has told you that you can take it) for fever or pain. and straight to ER if unable to lower temp less than 101.0 after medication given *Warm salt water gargles may help to soothe the throat *Throat Lozenges? *Warm fluids like tea with honey may help to soothe the throat? *Sleep elevated *Humidifier/Vaporizer Follow up IMMEDIATELY for new or worsening symptoms or no Noticeable improvement over the next 48-72 hours. 911 for difficulty breathing or swallowing You were tested for today for Upper Respiratory Panel with COVID19 your test result should be back in the next 24-48 hours, you check your results on the [facility] Clinical Impressions Clinical Impression: Viral syndrome Stand Alone Forms Stand Alone Forms: Work/School Release Instructions Patient Instructions: DI for Viral Syndrome, DI for Fever (Symptom) -- Adult, DI for Influenza -- Adult Discharge ED Provider: Oneida Briseno [facility] General Stated complaint: Bodyaches, fever, sore throat, fever, fatigue Mode of Arrival: Ambulatory Source of Information: Patient Limitations: No Limitations Time Seen by Provider: 06/03/22 15:28 Description of Symptoms (Recalled from Triage Doc. 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, RSV and other viruses State thats that when she got up she had fever, and was having chills body aches and cough States that she feels like she has the flu Related Data Home Medications Medication Instructions Recorded Confirmed buspirone 5 mg tablet 5 mg PO DAILY Depression 06/03/22 06/03/22 esomeprazole magnesium 20 mg 20 mg PO DAILY GERD 06/03/22 06/03/22 capsule,delayed release (Nexium) fexofenadine 60 mg tablet (Cookie 60 mg PO BID Allergy symptoms 06/03/22 06/03/22 Allergy) fluticasone propionate 50 1 spray intranasal DAILY Allergy 06/03/22 06/03/22 mcg/actuation nasal symptoms spray,suspension Previous Rx's Medication Instructions Recorded oseltamivir 75 mg capsule (Tamiflu) 75 mg PO Q12H 5 days #10 caps 06/03/22 Allergies Allergy/AdvReac Type Severity Reaction Status Date / Time No Known Allergies Allergy Verified 12/01/21 20:33 Worker's Comp Is this a Worker's Comp case?: No [facility] Disclaimer: The information contained in this section may have been updated after the patient was seen, as this information can be updated by other users. Medical History (Updated 06/03/22 @ 15:36 by Oneida Briseno APRN) Anxiety Depression GERD (gastroesophageal reflux disease) Hypertension affecting Migraines Surgical History (Updated 06/03/22 @ 15:24 by Leigh Mitchell
[2022-06-03 15:50] VITALS: BP 146/86; PULSE 94; RESP 18; TEMP 37; O2SAT 99
[2022-06-05 10:10] LABS: Influenza AH3,PCR Detected (NotDetected)
--- NOTE | 2022-06-05 13:50 | PC.NURSE ---
attempted to call patient about respiratory panel results.
--- NOTE | 2022-06-05 17:03 | PC.NURSE ---
results given to pt via telephone call.
== END 2022-06-03 15:53 | disposition home or self-care (01) ==
PROVIDERS: Emergency Provider Nurse Practitioner; PCP Family Medicine
DX: J10.1 Influenza due to other identified influenza virus with other respiratory manifestations (principal)
CPT/HCPCS: 87581; 87632; 87798; 99212; C9803; G0463; U0003; U0005

== ENCOUNTER → 2022-08-12 09:45 | Outpatient (CLI) | payer BC, SELFPAY ==
--- NOTE | 2022-08-12 09:51 | XR_ITS ---
FINAL REPORT CLINICAL HISTORY: THORACIC SPINE PAIN FINDINGS: THORACIC SPINE Two views demonstrate no acute fracture. There is minimal anterior osteophyte formation in the lower thoracic spine. There is no malalignment. IMPRESSION: No acute process. Reviewed, Interpreted and Dictated by Mariano Méndez MD Transcribed by Elyse Napoles Authenticated and [facility]
== END ==
PROVIDERS: PCP Nurse Practitioner Family; Visit Provider Nurse Practitioner Family
DX: M54.6 Pain in thoracic spine (principal)
CPT/HCPCS: 72072

== ENCOUNTER 2023-03-28 12:51 | Emergency (ER) | payer SELFPAY ==
[2023-03-28 13:05] VITALS: BP 140/57; PULSE 87; RESP 18; TEMP 36.7; O2SAT 100; BMI 26.7
[2023-03-28 13:22] LABS: Microscopic, Urine URINE MICROSCOPIC (MICROSCOPIC)
--- NOTE | 2023-03-28 13:27 | EXP.UTC ---
Discharge Plan Disposition Patient Disposition: Home, Self-Care Condition: Good Prescriptions Prescriptions: New cephalexin 500 mg capsule 500 mg PO BID 5 Days Qty: 10 0RF No Action fexofenadine [Cookie Allergy] 60 mg Tablet 60 mg PO BID esomeprazole magnesium [Nexium] 20 mg Capsule,Delayed Release(Dr/Ec) 20 mg PO DAILY bupropion HCl 300 mg tablet extended release 24 hr 300 mg PO DAILY Patient Comments: TAKE ONE TABLET BY MOUTH EVERY DAY DIRECTED Referrals Follow up/Referrals: Stephen Saleem MD [Primary Care Provider] - See instructions Activity Restrictions/Add. Instructions Additional Instructions/Restrictions: *Increase fluids. Water not Soda or Tea *Start antibiotic immediately and be sure to take as ordered for the FULL length of time although you should start to see improvement over the next 48 hours *Be SURE to follow up anytime for new or worsening symptoms with your family doctor. AND in 48 hours for urine culture results with your family doctor, if you do not have a doctor then you may call back to the [facility] for urine culture results and further treatment. We do recommend that you choose and establish care with a Primary Care Physician. ?AND follow up with them ?in 10-14 days to repeat UA to ensure infection is resolved and blood no longer present *Be sure to let your PCP know that we sent urine cultures from the [facility] so they can follow up to ensure that you area the on the correct antibiotic Call your doctor office and make appointment for 48 hours (2 days from today) ?to follow up and get the results of your urine culture and further treatment Clinical Impressions Clinical Impression: UTI symptoms Instructions Patient Instructions: DI for Urinary Tract Infection (UTI), Urinary Tract Infection Discharge ED Provider: Oneida Briseno [facility] [place] General Stated complaint: possible UTI Mode of Arrival: Ambulatory Source of Information: Patient Limitations: No Limitations Time Seen by Provider: 03/28/23 13:27 Description of Symptoms (Recalled from Triage Doc. by RN): PATIENT C/O PAIN/URGENCY WITH URINATION, HEMATURIA, AND PAIN TO PELVIC AREA THAT STARTED LAST TUESDAY NIGHT. SHE STATES SHE HAD A TELEHEALTH VISIT AND WAS GIVEN CIPRO FOR 3 DAYS AND FEELS SLIGHTLY BETTER BUT IS STILL HAVING SYMPTOMS HEENT Symptoms (Recalled from RN notes): No Resp Symptoms (Recalled from RN notes): No Skin Symptoms (Recalled from RN notes): No MS Symptoms (Recalled from RN notes): No Functional Status (Recalled from RN notes): WNL History of Present Illness Provider Complaint: Patient states that she was recently on vacation and she started having hemituria, burning with urination, and pain/pressure in her lower abdomen/pelvic area States that she did a telehealth visit and they prescribed her 3 days of Cipro 500mg BID state that she has finished them and is feeling much better no longer having hemituria but still having some urgency and pressure when she urinates doesnt think it cleared it all up Related Data Home Medications Medication Instructions Recorded Confirmed esomeprazole magnesium 20 mg 20 mg PO DAILY GERD 06/03/22 03/28/23 capsule,delayed release (Nexium) fexofenadine 60 mg tablet (Cookie 60 mg PO BID Allergy symptoms 06/03/22 03/28/23 Allergy) bupropion HCl 300 mg 24 hr tablet, 300 mg PO DAILY Depression 03/28/23 03/28/23 extended release Previous Rx's Medication Instructions Recorded cephalexin 500 mg capsule 500 mg PO BID 5 days #10 caps 03/28/23 Allergies Allergy/AdvReac Type Severity Reaction Status Date / Time No Known Allergies Allergy Verified 12/01/21 20:33 Worker's Comp Is this a Worker's Comp case?: No [facility] Disclaimer: The information contained in this section may have been updated after the patient was seen, as this information can be updated by other users. Medical History (Updated 03/28/23 @ 13:48 by Oneida Briseno APRN) Anxi
[2023-03-28 13:32] LABS: Appearance,Urine CLEAR (Clear); Bilirubin,Urine Negative (Negative); Blood, Urine 1+ (Negative); Color,Urine YELLOW (Yellow); Glucose,Urine (UA) Negative (Negative); Ketones,Urine Negative (Negative); Leukocyte Esterase,Urine TRACE (Negative); Nitrate,Urine Negative (Negative); Protein,Urine Negative (Negative); Specific Gravity, Urine <= 1.005 (1.005-1.030); Urobilinogen,Urine 0.2 EU/dl (0.2)
[2023-03-28 13:52] VITALS: BP 140/57; PULSE 87; RESP 18; TEMP 36.7; O2SAT 100
[2023-03-28 13:54] LABS: Bacteria,Urine 1+ /lpf; RBC,Urine Occasional #/hpf (0-3); WBC,Urine Occasional #/hpf (0-3)
== END 2023-03-28 13:56 | disposition home or self-care (01) ==
PROVIDERS: Emergency Provider Nurse Practitioner; PCP Family Medicine
DX: R30.0 Dysuria (principal); R10.2 Pelvic and perineal pain; K21.9 Gastro-esophageal reflux disease without esophagitis; F41.9 Anxiety disorder, unspecified; F32.A Depression, unspecified
CPT/HCPCS: 81001; 99212; 99214; G0463

== ENCOUNTER → 2023-04-01 14:54 | Outpatient (CLI) | payer OTHER, SELFPAY ==
--- NOTE | 2023-04-01 14:59 | XR_ITS ---
FINAL REPORT CLINICAL HISTORY: DYSURIA COMPARISON: None FINDINGS: A single supine view the abdomen was obtained. The bowel gas pattern is nonspecific but nonobstructive. There are no pathologic calcifications. Osseous structures are within normal limits. IMPRESSION: Nonspecific but nonobstructive bowel gas pattern. Reviewed, Interpreted and Dictated by Alma Rosa Huizar MD Transcribed by Brenda Durant Authenticated and [facility]
== END ==
LOC: RAD 14:56
PROVIDERS: PCP Nurse Practitioner Family; Visit Provider Nurse Practitioner Family
DX: R30.0 Dysuria (principal)
CPT/HCPCS: 74018

== ENCOUNTER 2024-07-17 12:38 | Outpatient (CLI) | payer OTHER, SELFPAY ==
--- NOTE | 2024-07-17 12:39 | CT_ITS ---
FINAL REPORT TECHNIQUE: Thin section axial CT with coronal reconstruction without IV contrast. This study was performed with techniques to keep radiation doses as low as reasonably achievable (ALARA). Individualized dose reduction techniques using automated exposure control or adjustment of mA and/or kV according to the patient's size were employed. This study was performed with techniques to keep radiation doses as low as reasonably achievable, (ALARA). Individualized dose reduction techniques using automated exposure control or adjustment of mA and/or kV according to the patient''s size were employed. CLINICAL HISTORY: chronic sinusitis COMPARISON: None FINDINGS: Paranasal sinuses are clear. The nasal septum is midline. No air-fluid levels are identified. No significant soft tissue thickening is present. IMPRESSION: Unremarkable paranasal sinuses without evidence of acute sinusitis. Reviewed, Interpreted and Dictated by Kamron Buckner MD Transcribed by Brenda Durant Authenticated and [facility]
== END 2024-07-17 23:59 | disposition home or self-care (01) ==
LOC: RAD 12:39
PROVIDERS: PCP Nurse Practitioner Family; Visit Provider Nurse Practitioner
DX: J32.9 Chronic sinusitis, unspecified (principal)
CPT/HCPCS: 70486

== ENCOUNTER 2025-01-14 14:16 | Outpatient (CLI) | payer OTHER, SELFPAY | END 2025-01-14 23:59 | disposition home or self-care (01) | LOC: LAB.DROPOF 01-15 09:54 | PROVIDERS: PCP Nurse Practitioner; Visit Provider Nurse Practitioner | DX: R10.2 Pelvic and perineal pain (principal) | CPT/HCPCS: 87086 ==

== ENCOUNTER 2025-01-28 09:59 | Outpatient (CLI) | payer OTHER, SELFPAY ==
--- OUTSIDE RECORDS SUMMARY | 2025-01-28 10:03 | XMS_ITS | Clinical Summary ---
[facility] Address [address] [place] [address] Care Team Providers Care Account Manager Trainee Name Role Phone Leonid Edward MD Primary Care Provider + Allergies No known active allergies Medications Vit-Fe Fumarate-FA ( 27-) 27-1 MG tablet tablet Take 1 tablet by mouth Daily. Active albuterol sulfate HFA 108 (90 Base) MCG/ACT inhaler Inhale 2 puffs Every 4 (Four) Hours As Needed for Wheezing. Active fluticasone (FLONASE) 50 MCG/ACT nasal spray 2 sprays into the nostril(s) as directed by provider Daily. Active ibuprofen (ADVIL,MOTRIN) 600 MG tablet Take 1 tablet by mouth Every 6 (Six) Hours As Needed for Mild Pain . 30 tablet 03/15/2019 Active Active Problems Problem Noted Date Diagnosed Date Gestational hypertension 03/12/2019 Delivery of by section 2018 Social History Tobacco Use Types Packs/Day Years Used Date Smoking Tobacco: Never Assessed [place] Depression Scale Answer Date Recorded Retired [place] Depression Score 1 03/13/2019 Retired EPD Scale: Thought of Harming Self Unrec ognized value 03/13/2019 Abuse Screen Answer Date Recorded Unsafe at Home or Work/School Not on file Feels Threatened by Someone? Not on file 03/2023 Does Anyone Keep You from Co ntacting Others or Doint Things Outside the Home? Not on file 04/11/2023 Physical Sign of Abuse Present Not on file 1 Housing Stability Answer Date Recorded Current Living Arrangements Not on file 03/2023 Potentially Unsafe Housing Conditions Not on mohinder e 04/11/2023 Family and Community Support Answer Andrés e Recorded Help with Day-to-Day Activities Not on file 04/11/2023 Lonely or Isolated Not on file 04/11/2023 Employment Answer Date Recorded Do you want help finding or keeping work or a fareed b? Not on file 04/11/2023 Disabilities Answer Date Recorded Concentrating, Remembering, or Making Decisions Difficulty Not on file 04/11/2023 Doing Errands Independently Difficulty Not on fi le 04/11/2023 Education Answer Date Recorded Help with school or training? Not on file Preferred Language Not on file 04/11/2023 Comments No Sex and Gender Information Value Date Recorded Sex Assigned at Not on file Legal Sex Female 1:00 PM EDT Gender Identity Not on file Sexual Orientation Not on file Last Filed Vital Signs Vital Sign Reading Time Taken Comments Blood Pressure 125/71 03/15/2019 7:00 AM EDT Pulse 84 03/15/2019 7:00 AM EDT Temperature 36.7 C (98.1 F) 03/15/2019 7:00 AM EDT Respiratory Rate 16 03/15/2019 7:00 AM EDT Oxygen Saturation 98% 03/12/2019 9:45 PM EDT Inhaled Oxygen Concentration - - Weight 77.1 kg (170 lb) 03/12/2019 6:02 PM EDT Height 154.9 cm (5' 1 ) 03/12/2019 6:02 PM EDT Body Mass Index 32.12 03/12/2019 6:02 PM EDT Plan of Treatment Health Maintenance Due Date Last Done Comments Annual Gynecologic Pelvic an d Breast Exam 1985 TDAP/TD VACCINES (1 - Tdap) 2004 ANNUAL PHYSICAL 03/15/2019 HEPATITIS C SCREENING 03/15/2019 COVID-19 Vaccine (2023-2 5 season) 2024 INFLUENZA VACCINE 04/03/2025 Pneumococcal Vaccine 0-49 Aged Out No longer eligible based on patient's age to complete this topic Procedures Procedure Name Priority Date/Time Associated Diagnosis Comments QUANTIFERON-TB GOLD PLUS Routine 01/11/2025 11:02 AM EDT Routine general medical examination at a health care facility QUANTIFERON-TB GOLD PLUS (LI-HEP) Routine 01/11/2025 11:02 AM EDT Routine general medical examination at a health care facility from Last 3 Months Results * QuantiFERON-TB Gold Plus (01/11/2025 11:02 AM EDT) Pathologist [facility] QuantiFERON Criteria Comment 01/15/2025 12:10 PM EDT [facility] Comment: QuantiFERON-TB Gold Plus is a qualitative indirect test for M tuberculosis infection (including disease) and is intended for use in conjunction with risk assessment, radiography, and other medical and diagnostic evaluations. The QuantiFERON-TB Gold Plus result is determined by subtracting the Nil value from either TB antigen (Ag) value. The Mitogen tube serves as a control for the test. QUANTIFERON TB1 AG VALUE 0.03 IU/mL 01/15/2025 12:10 PM EDT [facility] QUANTIFERON TB2 AG VALUE 0.03 IU/mL 01/15/2025 12:10 PM EDT [facility] QuantiFERON Nil Value 0.02 IU/mL 01/15/2025 12:10 PM EDT [facility] QuantiFERON Mitogen Value >10.00 IU/mL 01/15/2025 12:10 PM EDT [facility] Blood Venipuncture / Unknown 01/11/2025 11:02 AM EDT 01/11/2025 5:49 PM EDT Narrative [facility] - 01/15/2025 12:10 PM EDT Performed at: [address] [place] [id number] Research Scholar: Ryan Reich PhD, Phone: [phone] us Submitter Client LAB BLOOD ORDERABLES Final Resu lt [facility] [address] [place] [phone], * QuantiFERON-TB Gold Plus (01/11/2025 11:02 AM EDT) QuantiFERON Incubation Incubation performed. 01/15/2025 12:10 PM EDT [facility] QUANTIFERON-TB GOLD PLUS Negative Negative 01/15/2025 12:10 PM EDT [facility] Comment: No response to M tuberculosis antigens detected. Infection with M tuberculosis is unlikely, but high risk individuals should be considered for additional testing (ATS/IDSA/CDC Clinical Practice Guidelines, 2017). The reference range is an Antigen minus Nil result of <0.35 IU/mL. Chemiluminescence immunoassay methodology Blood Venipuncture / Unknown 01/11/2025 11:02 AM EDT 01/11/2025 5:49 PM EDT Narrative [facility] - 01/15/2025 12:10 PM EDT Performed at: [address] [place] [id number] Research Scholar: Ryan Reich PhD, Phone: [phone] us Submitter Client LAB BLOOD ORDERABLES Final Resu lt [facility] [address] [place] [id number], from Last 3 Months Insurance [facility] Advance Directives * CPR (Attempt to Resuscitate) (Latest Code Status on File) Date Activated Date Inactivated Comments 03/12/2019 10:36 PM 03/15/2019 2:42 PM Question Answer Comments Code Status (Patient has no pulse and is not breathing): CPR (Attempt to Resuscitate) Medical Interventions (Patie nt has pulse or is breathing): Full * CPR (Attempt to Resuscitate) Date Activated Date Inactivated Comments 03/12/2019 5:09 PM 03/12/2019 10:36 PM Question Answer Comments Code Status (Patient has no pulse and is not breathing): CPR (Attempt to Resuscitate) Medical Interventions (Patie nt has pulse or is breathing): Full Care Teams Account Manager Trainee Relationship Specialty Start Date End Date Leonid Edward MD PCP - General Family Medicine 03/12/19
--- NOTE | 2025-01-28 10:04 | CT_ITS ---
FINAL REPORT TECHNIQUE: Thin section axial images are obtained through the abdomen and pelvis after intravenous contrast. Reconstruction images were obtained from the axial data. Exam was performed using dose reduction techniques. CLINICAL HISTORY: PELVIC PAIN COMPARISON: None FINDINGS: LUNG BASES: Lung bases are clear. Heart size is normal. LIVER: Homogeneous. No focal lesion. GALLBLADDER/BILIARY SYSTEM: Gallbladder is present. No gallstones. No biliary dilatation. SPLEEN: Unremarkable. PANCREAS: Unremarkable. ADRENALS: Unremarkable. KIDNEYS/URETERS/BLADDER: No hydronephrosis, renal mass, or renal stone. Unremarkable urinary bladder. GI TRACT: No small bowel obstruction or dilatation. Appendix is not well seen but no secondary signs of acute appendicitis. Moderate retained stool. GI tract otherwise without acute abnormality. PELVIC ORGANS: Uterus and ovaries unremarkable for age. LYMPH NODES/RETROPERITONEUM/MESENTERY: No lymphadenopathy. No abdominal aortic aneurysm. ABDOMINAL WALL: The abdominal wall is intact. FREE FLUID: No ascites. BONES: No acute osseous abnormality. IMPRESSION: No acute abnormality. Moderate stool. Reviewed, Interpreted and Dictated by Alma Rosa Huizar MD Transcribed by Tiera Nguyen Authenticated and . [facility]
--- NOTE | 2025-01-28 10:59 | US_ITS ---
PROCEDURE: US PELVIC CLINICAL INDICATION: PELVIC PAIN Patient declined transvaginal ultrasound. COMPARISON: US US TRANSVAGINAL from 10/29/[address] ABDOMEN PELVIS W CON from 01/28/2025 FINDINGS: Transabdominal sonographic images of the pelvis were obtained. UTERUS: 8.1cm x 4.2cmx 3.6 cm anteverted with a combined endometrial thickness of 3.1mm. A scar is present. LEFT OVARY: 2.9 cmx1.9 cmx1.1cm with a volume of 3.2ml. There are multiple small peripheral follicles. RIGHT OVARY: 3.5 cmx 1.9 cmx1.5cm with a volume of 5.1ml. There is a small calcification within the right ovary. Both ovaries are seen and appear normal. Doppler flow to both ovaries are seen. There is no fluid in the cul-de-sac. IMPRESSION: 1. Anteverted uterus normal in shape and size. The endometrium is thin. 2. Both ovaries are seen and appear normal. The left ovary has multiple small peripheral follicles. The right ovary has a small calcification. 3. No fluid in the cul-de-sac. 4. Patient declined a transvaginal ultrasound since she was having discomfort. Dictated by: Nitesh Meyer MD 01/28/2025 16:06 Nitesh Meyer MD in OV 01/28/2025 16:06
--- NOTE | 2025-01-28 10:59 | US_ITS ---
FINAL REPORT TECHNIQUE: Sonographic images of the abdomen were obtained in all four quadrants. CLINICAL HISTORY: . PT STATES BACK AND PELVIC PAIN X 2 WEEKS FINDINGS: LIVER: Homogeneous. No focal hepatic lesion or intrahepatic biliary dilatation. GALLBLADDER: No gallstones. No pericholecystic fluid collection or gallbladder wall thickening. The common duct measures 4 mm. This is within normal limits for age. PANCREAS: Unremarkable. RIGHT KIDNEY: 8.9 cm. No hydronephrosis, mass or stone. LEFT KIDNEY: 9.7 cm. No hydronephrosis, mass or stone. SPLEEN: 11.4 cm. No focal splenic lesion. AORTA/IVC: No abdominal aortic aneurysm. Visualized IVC within normal limits. OTHER: No ascites. IMPRESSION: Unremarkable ultrasound of the abdomen. Reviewed, Interpreted and Dictated by Alma Rosa Huizar MD Transcribed by STEVE Barnett Authenticated and [facility]
[2025-01-28] MEDS: SODIUM CHLORIDE 0.9% 10ML SYR (RAD ONLY) 10 ML IV (11:09)
[2025-01-28] MEDS: IOPAMIDOL-370 (76%);100ML BOTTLE 75 ML IV (11:09)
== END 2025-01-28 23:59 | disposition home or self-care (01) ==
LOC: RAD 10:00
PROVIDERS: PCP Nurse Practitioner; Visit Provider Nurse Practitioner
DX: N83.02 Follicular cyst of left ovary (principal); N83.8 Other noninflammatory disorders of ovary, fallopian tube and broad ligament; K62.89 Other specified diseases of anus and rectum; R10.2 Pelvic and perineal pain
CPT/HCPCS: 74177; 76700; 76856; Q9967